=== PATIENT | female | born 1975 | race Caucasian/White ===

== ENCOUNTER 2017-10-26 19:10 | Emergency (ER) | payer SELFPAY ==
[2017-10-26 19:19] VITALS: BP 148/89; PULSE 87; TEMP 99.6; BMI 41.1
--- NOTE | 2017-10-26 19:35 | PDOC ---
History of Present Illness - General History Source: Patient Exam Limitations: No Limitations - History of Present Illness Initial Comments: 10/26/17 19:37 The patient is a 42 year old female with history significant for asthma and GERD who presents to the ED with multiple complaints over approximately 1 week. The patient reports she began to experience midsternal chest pain, consistent with her GERD. She states she took her GERD medication with improvement, but then began to experience chest tightness and shortness of breath. She reports she took her inhaler with apparent relief of her chest tightness and SOB. She now complains of persistent nonproductive cough. On evaluation, she complains of chest pain that is worse with deep inspiration and cough, no chest pain at rest. No fever or chills. No nausea, vomiting, or diarrhea. <Mira Alexis - Last Filed: 10/26/17 20:16> <Salvador Hand - Last Filed: 10/27/17 01:47> - General Chief Complaint: Respiratory Stated Complaint: COUGH, SOB Past History <Mira Alexis - Last Filed: 10/26/17 20:16> - Past Medical History COPD: No HTN: Yes Thyroid Disease: Yes - Suicide/Smoking/Psychosocial Hx Smoking History: Never smoked Hx Alcohol Use: No <Salvador Hand - Last Filed: 10/27/17 01:47> - Past Medical History Allergies/Adverse Reactions: Allergies Allergy/AdvReac Type Severity Reaction Status Date / Time No Known Drug Allergies Allergy Verified 10/26/17 19:13 Home Medications: Ambulatory Orders Amlodipine Besylate mg PO DAILY 10/26/17 Furosemide mg PO DAILY 10/26/17 Levothyroxine [Synthroid -] 175 mcg PO DAILY 10/26/17 Losartan Potassium mg PO DAILY 10/26/17 Metformin HCl 500 mg PO BID 10/26/17 Omeprazole 40 mg PO DAILY 10/26/17 Promethazine/Phenyleph/Codeine [Btmeytfhaylx-PV-Cyfuadl Syrup] 10 ml PO HS PRN # 120 syrup MDD 10ml 10/26/17 Simvastatin mg PO DAILY 10/26/17 Azithromycin 250 mg PO DAILY #6 tablet 10/27/17 Review of Systems - Review of Systems Able to Perform ROS?: Yes Comments:: 10/26/17 19:39 GENERAL/CONSTITUTIONAL: No fever or chills. No weakness. HEAD, EYES, EARS, NOSE AND THROAT: No change in vision. No ear pain or discharge. No sore throat. CARDIOVASCULAR: +Chest pain. No peripheral edema or lightheadedness. RESPIRATORY: +Chest tightness, SOB, wheezing, nonproductive cough. No hemoptysis. GASTROINTESTINAL: No nausea, vomiting, diarrhea or constipation. GENITOURINARY: No dysuria, frequency, or change in urination. MUSCULOSKELETAL: No joint or muscle swelling or pain. No neck or back pain. SKIN: No rash NEUROLOGIC: No headache, vertigo, loss of consciousness, or change in strength/ sensation. ENDOCRINE: No increased thirst. No abnormal weight change. HEMATOLOGIC/LYMPHATIC: No anemia, easy bleeding, or history of blood clots. ALLERGIC/IMMUNOLOGIC: No hives or skin allergy. <Mira Alexis - Last Filed: 10/26/17 20:16> *Physical Exam - Vital Signs Last Vital Signs Temp Pulse Resp BP Pulse Ox 99.6 F 87 20 148/89 100 10/26/17 19:10 10/26/17 19:10 10/26/17 19:10 10/26/17 19:10 10/26/17 19:10 - Physical Exam Comments: 10/26/17 19:40 GENERAL: Awake, alert, and fully oriented, in no acute distress HEAD: No signs of trauma EYES: PERRLA, EOMI, sclera anicteric, conjunctiva clear ENT: Auricles normal inspection, nares patent. Moist mucosa NECK: Normal ROM, supple, no JVD, or masses LUNGS: Breath sounds equal, clear to auscultation bilaterally. No wheezes, and no crackles HEART: Regular rate and rhythm, normal S1 and S2, no murmurs, rubs or gallops ABDOMEN: Soft, nontender, normoactive bowel sounds. No guarding, no rebound. No masses EXTREMITIES: Normal range of motion, no edema. No clubbing or cyanosis. No cords, erythema, or tenderness NEUROLOGICAL: Alert and oriented x 3. Moves all extremities. Face is symmetric. SKIN: Warm, Dry, normal turgor, no rashes or lesions noted. <Mira Alexis - Last Filed: 10/26/17 20:16> - Vital Signs Last Vital Signs Temp Pulse Resp BP Pulse Ox 99.6 F 87 20 148/89 100 03/29/18 19:10 10/26/17 19:10 10/26/17 19:10 10/26/17 19:10 10/26/17 19:10 <Salvador Hand - Last Filed: 10/27/17 01:47> Medical Decision Making - Medical Decision Making 10/27/17 01:47 ? infectious vs GERD trial of abx antitussives <Salvador Hand - Last Filed: 10/27/17 01:47> *DC/Admit/Observation/Transfer - Attestations Scribe Attestion: 10/26/17 19:40 Documentation prepared by Mira Alexis, acting as biomedical electronics technician for Salvador Hand MD. <Mira Alexis - Last Filed: 10/26/17 20:16> <Salvador Hand - Last Filed: 10/27/17 01:47> Diagnosis at time of Disposition: Cough - Discharge Dispostion Disposition: HOME Condition at time of disposition: Stable - Prescriptions Prescriptions: Azithromycin 250 mg PO DAILY #6 tablet Promethazine/Phenyleph/Codeine [Qqguipzyddmx-IF-Jrsnxqp Syrup] 10 ml PO HS PRN # 120 syrup MDD 10ml PRN Reason: Cough - Referrals Referrals: Luan Beyer [Other]
== END 2017-10-26 20:40 | disposition home or self-care (01) ==
LOC: FER 19:10
DX: R05 Cough (principal); I10 Essential (primary) hypertension; J45.909 Unspecified asthma, uncomplicated; K21.9 Gastro-esophageal reflux disease without esophagitis; Z79.84 Long term (current) use of oral hypoglycemic drugs
CPT/HCPCS: 71046-TC-FY; 99283-25

== ENCOUNTER 2018-07-02 23:38 | Emergency (ER) | payer SELFPAY ==
[2018-07-02 23:48] VITALS: TEMP 98.5; BMI 41.5
[2018-07-02] MEDS ORDERED: FLUCONAZOLE 100 MG TABLET (UD) PO ONE (23:55)
--- NOTE | 2018-07-02 23:55 | PDOC ---
History of Present Illness - General Chief Complaint: Pain, Acute Stated Complaint: SINUS INFECTION Time Seen by Provider: 07/02/18 23:44 History Source: Patient Exam Limitations: No Limitations - History of Present Illness Initial Comments: 07/02/18 23:56 This is a 43-year-old female who has history significant for hypertension high cholesterol diabetes and chronic sinusitis. Patient saw her ENT back in December was given a course of amoxicillin. Patient said the sinus infection and interpreted was given a prescription for Levaquin. Patient however has been taking the Levaquin intermittently sometimes once a week sometimes twice a week for the last several months. Patient now comes in complaining of persistent cough 1 week, cough is nonproductive the patient said that is giving her a headache and making her sinuses for worse. patient is noted also to be somewhat tachypneic and having difficulty speaking in full sentences. Patient denies any chest pain however said that when she coughs or takes a deep breath there is a degree of discomfort in her chest. Patient denies history of coronary artery disease. Allergies: None Past Medical History: none Social history: Lives with family. No smoking. No alcohol. No illicit drugs. Surgical history: None General: No fevers or chills, no weakness, no weight loss HEENT: No change in vision. No sore throat,. No ear pain, sinus pain CardioVascular: + pleuritic chest discomfort. No shortness of breath Respiratory:+ cough, or wheezing. Gastrointestinal: no nausea, vomiting, diarrhea or constipation, No rectal bleeding Genitourinary: No dysuria, hematuria, or frequency Musculoskeletal: No joint or muscle pain or swelling Neurologic: No headache, vertigo, dizziness or loss of consciousness Psychiatric: nor depression Skin: No rashes or easy bruising Endocrine: no increased thirst or abnormal weight change Allergic: no skin or latex allergy All other systems reviewed and normal Exam: General: Well-nourished well-developed individual, no acute distress HEENT: Throat: Normal, tonsils normal, no erythema or exudate, there is tenderness on palpation over the frontal and maxillary sinuses Neck: Supple, no meningeal signs, no lymphadenopathy Eyes::Pupils equal reactive and round, extraocular motion intact Chest: Nontender to palpation Cardiac: S1-S2 normal, regular rate and rhythm, no murmurs rubs or gallops Respiratory: Lungs clear to auscultation bilateral, tachypnea Abdomen: Soft, nondistended, normal bowel sounds, there is no tenderness on palpation diffusely Extremities: Warm, dry, no cyanosis, clubbing, or edema Skin: No rashes Neuro: Alert and oriented x3, CN II - XII intact, nonfocal exam with normal strength, normal sensation, normal reflexes, normal gait, Psych: Normal mood and affect 07/03/18 01:31 07/03/18 01:32 Assessment and plan: This is a 43-year-old female who comes in complaining of cough, shortness of breath and pain in her sinuses. Patient has been inadequately treated for sinusitis and that she had a prescription for Levaquin and has been taking it intermittently once or twice a week. In addition to that patient said she has been coughing for the last week. I gave her a DuoNeb here and some prednisone which helped significantly with the cough. Labs were sent including CBC, comp, troponin and BNP all of which were essentially normal. Patient had an EKG that showed a sinus rhythm at 83 a possible old anterior in dark otherwise no acute ST-T wave changes. Patient's chest x-ray was negative for any acute pathology patient's x-ray read by me. Patient discharged home and referred to our clinic for follow-up. Past History - Past Medical History Allergies/Adverse Reactions: Allergies Allergy/AdvReac Type Severity Reaction Status Date / Time No Known Drug Allergies Allergy Verified 07/02/18 23:44 Home Medications: Ambulatory Orders Amlodipine Besylate mg PO DAILY 10/26/17 Furosemide mg PO DAILY 10/26/17 Levothyroxine [Synthroid -] 175 mcg PO DAILY 10/26/17 Losartan Potassium mg PO DAILY 10/26/17 Omeprazole 40 mg PO DAILY 10/26/17 Promethazine/Phenyleph/Codeine [Qazjfztlpris-MJ-Sosnejm Syrup] 10 ml PO HS PRN # 120 syrup MDD 10ml 10/26/17 Simvastatin mg PO DAILY 10/26/17 metFORMIN HCL [Metformin HCl] 500 mg PO BID 10/26/17 Azithromycin 250 mg PO DAILY #6 tablet 10/27/17 Albuterol Sulfate [Proventil HFA Inhaler -] 1 - 2 inh PO QID #1 inhaler Azithromycin 250 mg PO DAILY #4 tablet 07/03/18 predniSONE [Deltasone -] 40 mg PO DAILY #8 tablet 07/03/18 COPD: No Diabetes: Yes HTN: Yes Hypercholesterolemia: Yes Thyroid Disease: Yes - Suicide/Smoking/Psychosocial Hx Smoking History: Never smoked Have you smoked in the past 12 months: No Information on smoking cessation initiated: No Hx Alcohol Use: No Drug/Substance Use Hx: No Substance Use Type: None *Physical Exam - Vital Signs Last Vital Signs Temp Pulse Resp BP Pulse Ox 98.5 F 96 H 18 143/101 H 99 07/02/18 23:45 07/02/18 23:45 07/02/18 23:45 07/02/18 23:45 07/02/18 23:45 Moderate Sedation - Procedure Monitoring Vital Signs: Procedure Monitoring Vital Signs Temperature 98.5 F 07/02/18 23:45 Pulse Rate 96 H 07/02/18 23:45 Respiratory Rate 18 07/02/18 23:45 Blood Pressure 143/101 H 07/02/18 23:45 O2 Sat by Pulse Oximetry (%) 99 07/02/18 23:45 ED Treatment Course - LABORATORY CBC & Chemistry Diagram: 07/03/18 00:10 07/03/18 00:10 *DC/Admit/Observation/Transfer Diagnosis at time of Disposition: Cough Sinusitis Qualifiers: Sinusitis location: unspecified location Chronicity: acute Recurrence: recurrent Qualified Code(s): J01.91 - Acute recurrent sinusitis, unspecified - Discharge Dispostion Disposition: HOME Condition at time of disposition: Stable Decision to Admit order: No - Prescriptions Prescriptions: Albuterol Sulfate [Proventil HFA Inhaler -] 1 - 2 inh PO QID #1 inhaler Azithromycin 250 mg PO DAILY #4 tablet predniSONE [Deltasone -] 40 mg PO DAILY #8 tablet - Referrals Referrals: [facility] [Other Staff,non-medical] - - Patient Instructions Additional Instructions: For the sinus infection and immediately Z-Tal. You were given the first dose tonight you take the next dose tomorrow evening he will take it once a day for 4 days. Call your ENT doctor in the morning to get an appointment for the end of this week or early next week in case or not better, Continue all the rest of your medication. I'm also sending a prescription 2 year pharmacy for a inhaler you can use it 2 puffs as often as every 4-6 hours for cough and shortness of breath. Also take prednisone 2 tablets a day for the next 4 days this should help with her coughing. Return to the emergency department immediately with ANY new, persistent or worsening symptoms. Continue any medications as previously prescribed by your physician. You should follow up with your primary doctor as soon as possible regarding today's emergency department visit. . Please make sure your doctor reviews the results of your emergency evaluation. Thank you for coming to the Emergency Department today for your care. It was a pleasure to see you today. Please note that your evaluation is INCOMPLETE until you follow-up with your doctor. Also - Post Discharge Activity
[2018-07-03] MEDS ORDERED: FLUCONAZOLE 150 MG TABLET PO ONE (00:07)
[2018-07-03] MEDS ORDERED: FLUCONAZOLE 50 MG TABLET PO ONE (00:10)
[2018-07-03] MEDS ORDERED: ALBUTEROL SO4 2.5/IPRATROPIUM 0.5 INH SOL 3 ML VIAL.NEB. NEB ONE ×2 (00:42→01:10)
[2018-07-03 00:54] LABS: BASO % 0.6 % (0-2.0); EOS % 2.6 % (0-4.5); HEMATOCRIT 35.9 % (32.4-45.2); HEMOGLOBIN 12.3 GM/dL (10.7-15.3); LYMPH % 32.4 % (8-40); MCH 27.5 pg (25.7-33.7); MCHC 34.2 g/dl (32.0-36.0); MEAN CELL VOLUME 80.5 fl (80-96); MEAN PLT VOLUME 9.3 fl (7.5-11.1); MONO % 9.3 % (3.8-10.2); NEUT % 55.1 % (42.8-82.8); PLATELET COUNT 255 K/MM3 (134-434); RBC 4.46 M/mm3 (3.60-5.2); RDW 15.1 % (11.6-15.6)
[2018-07-03 01:18] LABS: ALBUMIN 3.8 g/dl (3.4-5.0); ALK PHOS 73 U/L (45-117); ANION GAP 11 MMOL/L (8-16); BILIRUBIN,TOTAL 0.3 mg/dL (0.2-1); BLOOD UREA NITROGEN 11 mg/dL (7-18); CALCIUM 8.6 mg/dL (8.5-10.1); CHLORIDE 101 mmol/L (98-107); CO2 24 mmol/L (21-32); GLUCOSE,RANDOM 219 mg/dL (74-106); POTASSIUM 3.9 mmol/L (3.5-5.1); SGOT/AST 27 U/L (15-37); SGPT/ALT 24 U/L (13-61); SODIUM 135 mmol/L (136-145); TOT PROT 7.8 g/dl (6.4-8.2)
[2018-07-03] MEDS ORDERED: AZITHROMYCIN 250 MG TABLET PO ONE (01:20)
[2018-07-03] MEDS ORDERED: IBUPROFEN 600 MG TABLET (FP) PO ONE ×2 (01:23)
[2018-07-03] MEDS ORDERED: AZITHROMYCIN 250 MG TABLET ONE (01:23)
[2018-07-03] MEDS ORDERED: predniSONE 20 MG TABLET (UD) PO ONE (01:29)
[2018-07-03] MEDS ORDERED: predniSONE 20 MG TABLET (UD) ONE (01:30)
[2018-07-03 02:04] VITALS: BP 157/98; PULSE 82
--- NOTE | 2018-07-03 17:03 | EKG ---
Test Reason : Blood Pressure : / mmHG Vent. Rate : 083 BPM Atrial Rate : 083 BPM P-R Int : 186 ms QRS Dur : 102 ms QT Int : 398 ms P-R-T Axes : 084 000 071 degrees QTc Int : 467 ms NORMAL SINUS RHYTHM POSSIBLE LEFT ATRIAL ENLARGEMENT POSSIBLE ANTERIOR INFARCT , AGE UNDETERMINED ABNORMAL ECG Confirmed by MD JUSTIN, JESS ([id number]) on 07/03/2018 5:03:18 PM Referred By: KARIN ESCALANTE Confirmed By:JESS ANDERSON MD
== END 2018-07-03 02:15 | disposition home or self-care (01) ==
LOC: FER 23:38
PROC: 3E0F7GC Introduction of Other Therapeutic Substance into Respiratory Tract, Via Natural or Artificial Opening (ICD-10-PCS; principal; 2018-07-02)
DX: J01.91 Acute recurrent sinusitis, unspecified (principal); R05 Cough; I10 Essential (primary) hypertension; E11.9 Type 2 diabetes mellitus without complications; E78.00 Pure hypercholesterolemia, unspecified; E03.9 Hypothyroidism, unspecified
CPT/HCPCS: 36415; 71046-TC-FY; 80053; 82550; 82553; 83880; 84484; 85025; 93005; 99282-25

== ENCOUNTER 2018-07-05 18:15 | Emergency (ER) | payer SELFPAY ==
[2018-07-05 18:25] VITALS: BP 140/79; PULSE 74; TEMP 98.6; BMI 42.2
--- NOTE | 2018-07-05 19:13 | PDOC ---
History of Present Illness - General History Source: Patient Exam Limitations: No Limitations - History of Present Illness Initial Comments: 07/05/18 19:35 The patient is a 43 year old female here today for evaluation of shortness of breath. The patient was seen on 07/02/18 for similar symptoms and was prescribed prednisone and an inhaler. She reports that the prednisone did not help and that the inhaler only mildly helped. The patient notes associated sneezing, nose stuffiness, chest tightness, and back ache. She reports that her symptoms are worse when she goes outside in the cold. Patient denies headache, lightheadedness. Denies fever, chills. Denies nausea, vomiting, diarrhea, abdominal pain. PAST MEDICAL HISTORY: HTN, HLD, diabetes PAST SURGICAL HISTORY: no significant history FAMILY HISTORY: no pertinent history SOCIAL HISTORY: Pt lives with family and is employed. MEDICATIONS: reviewed ALLERGIES: As per nursing notes General: No fevers or chills, no weakness, no weight loss HEENT: +nose stuffiness and sneezing. No change in vision. No sore throat,. No ear pain CardioVascular: +chest pain and shortness of breath Respiratory:+ cough. Gastrointestinal: no nausea, vomiting, diarrhea or constipation, No rectal bleeding Genitourinary: No dysuria, hematuria, or frequency Musculoskeletal: +low back pain. No joint or muscle pain or swelling Neurologic: No headache, vertigo, dizziness or loss of consciousness Psychiatric: nor depression Skin: No rashes or easy bruising Endocrine: no increased thirst or abnormal weight change Allergic: no skin or latex allergy All other systems reviewed and normal General: Well-nourished well-developed individual, no acute distress HEENT: Nose: +nasal congestion Throat: Normal, tonsils normal, no erythema or exudate Neck: Supple, no meningeal signs, no lymphadenopathy Eyes::Pupils equal reactive and round, extraocular motion intact Chest: Nontender to palpation Cardiac: S1-S2 normal, regular rate and rhythm, no murmurs rubs or gallops Respiratory: Lungs clear to auscultation bilateral Extremities: Warm, dry, no cyanosis, clubbing, or edema Skin: No rashes Neuro: Alert and oriented x3, nonfocal exam, grossly intact, normal gait Psych: Normal mood and affect <Joel Dailey - Last Filed: 12/06/18 19:35> - General History Source: Patient Exam Limitations: No Limitations - History of Present Illness Initial Comments: A portion of this note was documented by scribe services under my direction. I have reviewed the details of the note, within reason, and agree with the documentation with the following case summary and management plan written by me. Patient treated in the ED. Nursing notes are reviewed and incorporated into the medical decision-making. Vital signs reviewed. Assessment plan: This is a 43-year-old female who comes in complaining of some chest tightness radiating to her back, shortness of breath, nasal congestion and a generalized fatigue. Patient was seen by me in this department 2 days ago for similar symptoms. Patient was started on some antibiotics for a probable sinus infection and given a prescription for an inhaler. Patient was sent to the clinic for referral and follow-up but did not call her make an appointment with the clinic. Patient returns now complaining of similar symptoms but in addition to the nasal congestion and shortness of breath patient also is complaining of some chest tightness. Workup initiated including CBC, comp, EKG, cardiac enzymes 07/05/18 21:57 Reevaluation: Patient feels better after DuoNeb. Patient's workup is otherwise normal with a normal troponin. Patient's heart score is 3. Patient's glucose was elevated so she was given 10 units of insulin and a liter of IV fluids repeat glucose was 293. Patient discharged home given follow up with Dr. Camargo. <Angely Klein I - Last Filed: 07/05/18 22:14> - General Chief Complaint: Respiratory Stated Complaint: COUGH, SOB Time Seen by Provider: 07/05/18 19:10 Past History <Joel Dailey - Last Filed: 07/05/18 19:35> - Past Medical History COPD: No Diabetes: Yes HTN: Yes Hypercholesterolemia: Yes Thyroid Disease: Yes - Suicide/Smoking/Psychosocial Hx Smoking History: Never smoked Have you smoked in the past 12 months: No Information on smoking cessation initiated: No Hx Alcohol Use: No Drug/Substance Use Hx: No Substance Use Type: None <Angely Klein I - Last Filed: 07/05/18 22:14> - Past Medical History Allergies/Adverse Reactions: Allergies Allergy/AdvReac Type Severity Reaction Status Date / Time chocolate flavor Allergy Verified 07/05/18 18:22 shrimp Allergy Verified 07/05/18 18:22 CHOCOLATE Allergy Uncoded 07/05/18 18:22 Home Medications: Ambulatory Orders Amlodipine Besylate 10 mg PO DAILY 10/26/17 Levothyroxine [Synthroid -] 175 mcg PO DAILY 10/26/17 Losartan Potassium 100 mg PO DAILY 10/26/17 Omeprazole 40 mg PO DAILY 10/26/17 Promethazine/Phenyleph/Codeine [Nwrdxibhdvxg-WZ-Rkeavyr Syrup] 10 ml PO HS PRN # 120 syrup MDD 10ml 10/26/17 Simvastatin mg PO DAILY 10/26/17 metFORMIN HCL [Metformin HCl] 500 mg PO BID 10/26/17 Albuterol Sulfate [Proventil HFA Inhaler -] 1 - 2 inh PO QID #1 inhaler Azithromycin 250 mg PO DAILY #4 tablet 07/03/18 predniSONE [Deltasone -] 40 mg PO DAILY #8 tablet 07/03/18 Albuterol 2.5/Ipratropium 0.5 [Duoneb -] 1 neb IH QID #28 vial.neb. 07/05/18 Loratadine [Claritin] 10 mg PO DAILY #30 tablet 07/05/18 Meloxicam mg PO HS 07/05/18 *Physical Exam - Vital Signs Last Vital Signs Temp Pulse Resp BP Pulse Ox 98.6 F 74 18 140/79 98 07/05/18 18:15 07/05/18 18:15 07/05/18 18:15 07/05/18 18:15 07/05/18 18:15 <Joel Dailey - Last Filed: 07/05/18 19:35> - Vital Signs Last Vital Signs Temp Pulse Resp BP Pulse Ox 98.6 F 74 18 140/79 98 07/05/18 18:15 07/05/18 18:15 07/05/18 18:15 07/05/18 18:15 07/05/18 18:15 <Angely Klein I - Last Filed: 07/05/18 22:14> Moderate Sedation - Procedure Monitoring Vital Signs: Procedure Monitoring Vital Signs Temperature 98.6 F 07/05/18 18:15 Pulse Rate 74 07/05/18 18:15 Respiratory Rate 18 07/05/18 18:15 Blood Pressure 140/79 07/05/18 18:15 O2 Sat by Pulse Oximetry (%) 98 07/05/18 18:15 <Joel Dailey - Last Filed: 07/05/18 19:35> - Procedure Monitoring Vital Signs: Procedure Monitoring Vital Signs Temperature 98.6 F 07/05/18 18:15 Pulse Rate 74 07/05/18 18:15 Respiratory Rate 18 07/05/18 18:15 Blood Pressure 140/79 07/05/18 18:15 O2 Sat by Pulse Oximetry (%) 98 07/05/18 18:15 <Angely Klein I - Last Filed: 07/05/18 22:14> Heart Score/ECG Review - History History: Slightly suspicious - Electrocardiogram EKG: Non specific repolarization disturbance - Age Age: </= 45 - Risk Factors Risk Factors Heart Score: Yes Hx Hypercholesterolemia, Yes Hx Hypertension, Yes Hx Diabetes Based on the list above the patient has:: >/=3 risk factors or Hx atherosclerotic disease - Troponin Troponin: </= normal limit - Score Heart Score - Total: 3 <Angely Klein I - Last Filed: 07/05/18 22:14> ED Treatment Course - LABORATORY CBC & Chemistry Diagram: 07/05/18 19:48 07/05/18 19:48 <Angely Klein I - Last Filed: 07/05/18 22:14> *DC/Admit/Observation/Transfer - Attestations Scribe Attestion: 07/05/18 19:35 Documentation prepared by SCOOTER Lomax, acting as medical representative for Angely Klein MD. <Joel Dailey - Last Filed: 07/05/18 19:35> - Discharge Dispostion Decision to Admit order: No <Angely Klein I - Last Filed: 07/05/18 22:14> Diagnosis at time of Disposition: Cough, Seasonal allergies - Discharge Dispostion Disposition: HOME Condition at time of disposition: Stable - Prescriptions Prescriptions: Albuterol 2.5/Ipratropium 0.5 [Duoneb -] 1 neb IH QID #28 vial.neb. Loratadine [Claritin] 10 mg PO DAILY #30 tablet - Patient Instructions Additional Instructions: I am referring you to Dr. Contreras for follow-up. his office is here in the hospital so it will be easy for you to get to. Call [phone] in the morning for an appointment as soon as possible when you call let them know you were in the emergency room and we wanted to to follow-up. I sent a prescription to your pharmacy for nebulizer treatments. It is the same 1 I gave you hear that was helpful. Take one as often as 4 times a day. I also sent a prescription to her pharmacy for Cheryl which is a medicine that should be helpful for your nasal congestion.. Continue all your other medications as prescribed. Return to the emergency department immediately with ANY new, persistent or worsening symptoms. Continue any medications as previously prescribed by your physician. You should follow up with your primary doctor as soon as possible regarding today's emergency department visit. . Please make sure your doctor reviews the results of your emergency evaluation. Thank you for coming to the Emergency Department today for your care. It was a pleasure to see you today. Please note that your evaluation is INCOMPLETE until you follow-up with your doctor.
[2018-07-05] MEDS ORDERED: LORATADINE 10 MG TABLET PO ONE (19:31)
[2018-07-05] MEDS ORDERED: ALBUTEROL SO4 2.5/IPRATROPIUM 0.5 INH SOL 3 ML VIAL.NEB. NEB ONE ×2 (19:32→19:35)
[2018-07-05] MEDS ORDERED: LORATADINE 10 MG TABLET ONE (19:35)
[2018-07-05 20:15] LABS: BASO % 0.1 % (0-2.0); EOS % 0.1 % (0-4.5); HEMATOCRIT 38.6 % (32.4-45.2); HEMOGLOBIN 12.8 GM/dl (10.7-15.3); LYMPH % 13.9 % (8-40); MCH 27.4 pg (25.7-33.7); MEAN PLT VOLUME 9.1 fl (7.5-11.1); NEUT % 83.9 % (42.8-82.8); PLATELET COUNT 303 K/MM3 (134-434); RBC 4.65 M/mm3 (3.60-5.2); RDW 14.3 % (11.6-15.6); WHITE BLOOD COUNT 9.9 K/mm3 (4.0-10.8)
[2018-07-05 20:19] LABS: ALBUMIN 4.1 g/dl (3.5-5.0); ALK PHOS 65 U/L (32-92); ANION GAP 8 MMOL/L (8-16); BILIRUBIN,TOTAL 0.4 mg/dl (0.2-1.0); BLOOD UREA NITROGEN 19 mg/dl (7-18); CHLORIDE 100 mmol/L (98-107); CO2 21 mmol/L (22-28); CREATININE 0.9 mg/dl (0.6-1.3); POTASSIUM 4.2 mmol/L (3.5-5.1); SGOT/AST 46 U/L (10-42); SGPT/ALT 25 U/L (10-40); SODIUM 129 mmol/L (136-145); TOT PROT 8.1 g/dl (6.4-8.3)
[2018-07-05 20:28] LABS: GLUCOSE,RANDOM 368 mg/dl (74-106)
[2018-07-05] MEDS ORDERED: INSULIN REGULAR HUMAN 100 UNITS/ML *VIAL IVPUSH ONE (20:28)
[2018-07-05] MEDS ORDERED: SODIUM CHLORIDE 1,000 ML IV ONE (20:29)
[2018-07-05] MEDS ORDERED: INSULIN REGULAR HUMAN 100 UNITS/ML *VIAL ONE (20:44)
[2018-07-05] MEDS ORDERED: KETOROLAC TROMETHAMINE 30 MG/1 ML VIAL IVPUSH ONE (21:09)
[2018-07-05] MEDS ORDERED: KETOROLAC TROMETHAMINE 30 MG/1 ML VIAL ONE (21:10)
[2018-07-05] MEDS ORDERED: HEMOQUE TEST 1 EACH EACH ONE (21:37)
--- NOTE | 2018-07-06 11:38 | EKG ---
Test Reason : Blood Pressure : / mmHG Vent. Rate : 074 BPM Atrial Rate : 074 BPM P-R Int : 194 ms QRS Dur : 102 ms QT Int : 400 ms P-R-T Axes : 070 -06 065 degrees QTc Int : 444 ms NORMAL SINUS RHYTHM POSSIBLE LEFT ATRIAL ENLARGEMENT SEPTAL INFARCT (CITED ON OR BEFORE 03-JUL-2018) ABNORMAL ECG WHEN COMPARED WITH ECG OF 03-JUL-2018 00:15, QUESTIONABLE CHANGE IN INITIAL FORCES OF ANTEROSEPTAL LEADS NONSPECIFIC T WAVE ABNORMALITY NOW EVIDENT IN ANTERIOR LEADS Confirmed by YVONNE JARAMILLO, FLORA ([id number]) on 07/06/2018 11:38:16 AM Referred By: DR MCCRACKEN Confirmed By:FLORA RUSSELL MD
== END 2018-07-05 22:05 | disposition home or self-care (01) ==
LOC: FER 18:15
PROC: 3E0F7GC Introduction of Other Therapeutic Substance into Respiratory Tract, Via Natural or Artificial Opening (ICD-10-PCS; principal; 2018-07-05)
PROC: 3E013VG Introduction of Insulin into Subcutaneous Tissue, Percutaneous Approach (ICD-10-PCS; 2018-07-05)
PROC: 3E0333Z Introduction of Anti-inflammatory into Peripheral Vein, Percutaneous Approach (ICD-10-PCS; 2018-07-05)
PROC: 3E0337Z Introduction of Electrolytic and Water Balance Substance into Peripheral Vein, Percutaneous Approach (ICD-10-PCS; 2018-07-05)
DX: J30.2 Other seasonal allergic rhinitis (principal); R05 Cough; I10 Essential (primary) hypertension; E11.9 Type 2 diabetes mellitus without complications; E78.00 Pure hypercholesterolemia, unspecified; E03.9 Hypothyroidism, unspecified
CPT/HCPCS: 36415; 80053; 82550; 82553; 82962; 84484; 85025; 93005; 99284-25; J7030

== ENCOUNTER 2018-07-16 13:54 | Emergency (ER) | payer SELFPAY ==
[2018-07-16 13:59] VITALS: BMI 41.1
--- NOTE | 2018-07-16 14:10 | PDOC ---
History of Present Illness - General Chief Complaint: Pain, Acute Stated Complaint: LEFT KNEE PAIN Time Seen by Provider: 07/16/18 14:05 - History of Present Illness Initial Comments: 07/16/18 15:20 43 old past medical history significant for hypertension hyperlipidemia diabetes chronic back and knee pain status post an accident presents to the ED with worsening of her chronic left knee pain No acute injury no fever no chills no new swelling just moderate pain to the left knee which radiates somewhat up her leg worse with ambulated but also occurs at rest moderate in severity Past History - Past Medical History Allergies/Adverse Reactions: Allergies Allergy/AdvReac Type Severity Reaction Status Date / Time chocolate flavor Allergy Verified 07/16/18 13:55 shrimp Allergy Verified 07/16/18 13:55 CHOCOLATE Allergy Uncoded 07/16/18 13:55 Home Medications: Ambulatory Orders Amlodipine Besylate 10 mg PO DAILY 10/26/17 Levothyroxine [Synthroid -] 175 mcg PO DAILY 10/26/17 Losartan Potassium 100 mg PO DAILY 10/26/17 Omeprazole 40 mg PO DAILY 10/26/17 Simvastatin 0 mg PO DAILY 10/26/17 metFORMIN HCL [Metformin HCl] 500 mg PO BID 10/26/17 Loratadine [Claritin] 10 mg PO DAILY #30 tablet 07/05/18 Meloxicam 0 mg PO HS 07/05/18 COPD: No Diabetes: Yes HTN: Yes Hypercholesterolemia: Yes Thyroid Disease: Yes - Suicide/Smoking/Psychosocial Hx Smoking History: Never smoked Have you smoked in the past 12 months: No Hx Alcohol Use: No Drug/Substance Use Hx: No Substance Use Type: None *Physical Exam - Vital Signs Last Vital Signs Temp Pulse Resp BP Pulse Ox 98.5 F 80 18 125/86 100 07/16/18 13:54 07/16/18 13:54 07/16/18 13:54 07/16/18 13:54 07/16/18 13:54 Moderate Sedation - Procedure Monitoring Vital Signs: Procedure Monitoring Vital Signs Temperature 98.5 F 07/16/18 13:54 Pulse Rate 80 07/16/18 13:54 Respiratory Rate 18 07/16/18 13:54 Blood Pressure 125/86 07/16/18 13:54 O2 Sat by Pulse Oximetry (%) 100 07/16/18 13:54 Medical Decision Making - Medical Decision Making 07/16/18 15:51 Acute on chronic knee pain x-ray demonstrates no acute fracture dislocation but significant loss of cartilage and joint space Patient provided with orthopedic follow-up Findings, the need for follow-up and strict return instructions discussed with patient. *DC/Admit/Observation/Transfer Diagnosis at time of Disposition: Knee pain Qualifiers: Chronicity: chronic Laterality: left Qualified Code(s): M25.562 - Pain in left knee; G89.29 - Other chronic pain - Discharge Dispostion Condition at time of disposition: Stable Decision to Admit order: No - Referrals Referrals: Sanket Mayo MD [Staff Physician] - - Patient Instructions Printed Discharge Instructions: DI for Knee Pain Additional Instructions: Rest, ice affected need 20 minutes on 20 minutes off. Take 2 tabs Aleve twice a day for the next 3 days. Follow-up with Dr. Mayo orthopedics this week. Return to ED for any severe worsening symptoms or for any concerns. - Post Discharge Activity Forms/Work/School Notes: Back to Work
[2018-07-16 14:16] VITALS: BP 125/86; PULSE 80; TEMP 98.5
[2018-07-16] MEDS ORDERED: KETOROLAC TROMETHAMINE 30 MG/1 ML VIAL IM ONE (14:18)
[2018-07-16] MEDS ORDERED: diazePAM 2 MG TABLET PO ONE (14:19)
[2018-07-16] MEDS ORDERED: diazePAM 2 MG TABLET ONE (14:37)
[2018-07-16] MEDS ORDERED: KETOROLAC TROMETHAMINE 30 MG/1 ML VIAL ONE (14:37)
== END 2018-07-16 16:00 | disposition home or self-care (01) ==
LOC: FER 13:54
PROC: 3E0233Z Introduction of Anti-inflammatory into Muscle, Percutaneous Approach (ICD-10-PCS; principal; 2018-07-16)
DX: M25.562 Pain in left knee (principal); E11.9 Type 2 diabetes mellitus without complications; I10 Essential (primary) hypertension; E78.5 Hyperlipidemia, unspecified; G89.29 Other chronic pain
CPT/HCPCS: 73562-TC-LT-FY; 99282-25

== ENCOUNTER 2019-02-19 23:54 | Emergency (ER) | payer SELFPAY ==
[2019-02-20 00:14] VITALS: BP 158/101; PULSE 77; TEMP 98.5; BMI 41.1
--- NOTE | 2019-02-20 00:21 | PDOC ---
History of Present Illness - General Chief Complaint: Pain, Acute Stated Complaint: PAIN LEFT SHOULDER WITH SWELLING INTO HER BACK X 3 Time Seen by Provider: 02/20/19 00:07 - History of Present Illness Initial Comments: This 44-year-old woman with a history of DM (type II), HTN, HLD presents with a few day history of left-sided neck pain/left shoulder pain. Pain is worse with movement and positioning (neck pain worse while lying down ) . No history of trauma and no known overuse . She denies recent lifting/pulling/pushing heavy weight or other overuse. She denies pain/paresthesias/weakness of arms. No history of chronic neck pain or neck trauma. She has a history of right-sided carpal tunnel syndrome but otherwise no other upper extremity chronic pain. No chest pain/shortness of breath. The patient is taking [id number] ibuprofen without significant relief Past History - Past Medical History Allergies/Adverse Reactions: Allergies Allergy/AdvReac Type Severity Reaction Status Date / Time chocolate flavor Allergy Verified 02/19/19 23:59 shrimp Allergy Verified 02/19/19 23:59 CHOCOLATE Allergy Uncoded 07/16/18 13:55 Home Medications: Ambulatory Orders Amlodipine Besylate 10 mg PO DAILY 02/19/19 Atorvastatin Ca [Lipitor] 40 mg PO HS 02/19/19 Gabapentin 300 mg PO DAILY 02/19/19 Glipizide [Glipizide Xl] 2.5 mg PO DAILY 02/19/19 Levothyroxine [Synthroid -] 150 mcg PO DAILY 02/19/19 Losartan Potassium 100 mg PO DAILY 02/19/19 Metformin HCl [Metformin HCl ER] 500 mg PO BID 02/19/19 Diclofenac Sodium [Voltaren -] 75 mg PO BID PRN #10 tablet. 02/20/19 Tizanidine HCl [Zanaflex (Nf) -] 4 mg PO TID PRN #12 tablet 02/20/19 COPD: No Diabetes: Yes HTN: Yes Hypercholesterolemia: Yes Thyroid Disease: Yes - Suicide/Smoking/Psychosocial Hx Smoking History: Never smoked Have you smoked in the past 12 months: No Hx Alcohol Use: No Drug/Substance Use Hx: No Substance Use Type: None Review of Systems - Review of Systems Able to Perform ROS?: Yes Comments:: 12 point review of systems is negative except for what is noted in the history of present illness *Physical Exam - Physical Exam Comments: GENERAL: Adult female, alert and oriented 3, in no acute distress HEAD: Normal with no signs of trauma. EYES: PERRLA, EOMI, sclera anicteric, conjunctiva clear. ENT: Ears normal, nares patent, oropharynx clear without exudates. Moist mucous membranes. NECK: supple without lymphadenopathy, JVD, or masses. No midline tenderness; tenderness with spasm of left paraspinal muscles LUNGS: Breath sounds equal, clear to auscultation bilaterally. No wheezes, and no crackles. EXTREMITIES: Tenderness of left trapezius muscle; mild pain with abduction of left shoulder greater than 30. No humeral head tenderness or deformity No motor or sensory deficit of left upper extremity or other extremity NEUROLOGICAL: Cranial nerves II through XII grossly intact. Normal speech. No focal neurologic defici SKIN: Warm, Dry, normal turgor, no rashes or lesions noted. Medical Decision Making - Medical Decision Making Cervical spine x-ray/left shoulder x-ray performed: Preliminary reading by me- straightening of the lordotic curve of cervical spine; otherwise, no obvious fracture/dislocation of cervical vertebrae. Left shoulder normal without evidence of fracture or dislocation Clinical presentation most consistent with cervical strain with significant muscle spasm of paraspinal cervical muscles as well as trapezius muscle. There may also be some left shoulder muscle strain present. Etiology of muscle strain is unclear; the patient states that she frequently has poor posture when she is using her phone and she uses her phone frequently. No other clear source of chronic muscle stress: She states that she rarely uses a keyboard/monitor, carries heavy material (other than slight to moderate loads of laundry) or engages in strenuous physical exercise. Toradol 60 mg IM given for anti-inflammatory medication with small (#10) prescription for diclofenac 75 mg twice a day as needed. Patient will follow-up with her general medical doctor within the next week with whom she had planned to see for blood pressure management. She also follow-up with spinal surgeon (Dr. Galvan) regarding her neck pain. *DC/Admit/Observation/Transfer Diagnosis at time of Disposition: Cervical paraspinal muscle spasm Left shoulder strain Qualifiers: Encounter type: initial encounter Qualified Code(s): S46.912A - Strain of unspecified muscle, fascia and tendon at shoulder and upper arm level, left arm , initial encounter - Discharge Dispostion Disposition: HOME Condition at time of disposition: Stable - Prescriptions Prescriptions: Diclofenac Sodium [Voltaren -] 75 mg PO BID PRN #10 tablet. PRN Reason: Pain Tizanidine HCl [Zanaflex (Nf) -] 4 mg PO TID PRN #12 tablet PRN Reason: Muscle Spasms - Referrals Referrals: Adin Galvan MD [Staff Physician] - - Patient Instructions Printed Discharge Instructions: DI for Neck Pain Additional Instructions: Local warmth to area of pain Voltaren 75 mg twice a day as neededtake with food Tizanidine 4 mg up to 3 times a day as needed for muscle spasmthis medication will make you sleepy Follow-up with (spinal surgeon) within the next 4 days (call office in a.m. to arrange follow-up) Follow-up with your general medical doctor within the next week as planned Return to ER if pain worsens or you develop numbness/weakness in arms or legs - Post Discharge Activity
[2019-02-20] MEDS ORDERED: KETOROLAC TROMETHAMINE 60 MG/2 ML VIAL IM ONE (01:38)
[2019-02-20] MEDS ORDERED: KETOROLAC TROMETHAMINE 60 MG/2 ML VIAL ONE (01:45)
== END 2019-02-20 01:52 | disposition home or self-care (01) ==
LOC: FER 23:54
PROC: 3E0233Z Introduction of Anti-inflammatory into Muscle, Percutaneous Approach (ICD-10-PCS; principal; 2019-02-19)
DX: M62.830 Muscle spasm of back (principal); S46.912A Strain of unspecified muscle, fascia and tendon at shoulder and upper arm level, left arm, initial encounter; I10 Essential (primary) hypertension; E78.00 Pure hypercholesterolemia, unspecified; E11.9 Type 2 diabetes mellitus without complications; E07.9 Disorder of thyroid, unspecified; X58.XXXA Exposure to other specified factors, initial encounter; Y93.89 Activity, other specified; Y92.89 Other specified places as the place of occurrence of the external cause
CPT/HCPCS: 72050-TC-FY; 73030-TC-LT-FY; 99281-25